=== PATIENT | female | born 1975 ===

== ENCOUNTER 2025-03-01 06:23 | Day surgery (SDC) | payer BC, SELFPAY ==
[2025-03-01 07:14] LABS: Glucose - Point of Care 118 mg/dl (70-99)
== END 2025-03-01 09:02 | disposition home or self-care (01) ==
LOC: GI 06:23
PROVIDERS: ATTENDING PHYSICIAN Internal Medicine Gastroenterology
DX: K62.5 Hemorrhage of anus and rectum (principal); K51.311 Ulcerative (chronic) rectosigmoiditis with rectal bleeding; K64.9 Unspecified hemorrhoids; K63.5 Polyp of colon; K51.30 Ulcerative (chronic) rectosigmoiditis without complications; K51.20 Ulcerative (chronic) proctitis without complications
CPT/HCPCS: 45380; 82962; 88305